=== PATIENT | female | born 1990 | race Caucasian/White ===

== ENCOUNTER 2020-02-05 10:53 | Emergency (ER) | payer OTHER ==
[2020-02-05 11:53] LABS: BILIRUBIN,URINE NEGATIVE (NEGATIVE); GLUCOSE, URINE (UA) NEGATIVE (NEGATIVE); KETONES,URINE (UA) NEGATIVE (NEGATIVE); LEUKOCYTE ESTERASE, URINE MODERATE (NEGATIVE); NITRITE,URINE POSITIVE (NEGATIVE); OCCULT BLOOD,URINE MODERATE (NEGATIVE); PROTEIN,URINE NEGATIVE (NEGATIVE); UROBILINOGEN,URINE 0.2 (NORMAL) E.U./dL (NORMAL)
[2020-02-05 11:55] LABS: CLARITY,URINE HAZY (CLEAR); HCG UR QUAL POSITIVE
--- NOTE | 2020-02-05 12:12 | ED Physician Documentation ---
History of Present Illness - Stated complaint Stated Complaint: FEMALE - Chief complaint Chief Complaint: General - History obtained from History obtained from: Patient - Additonal information Additional information: 29yo woman frequent UTIs presents with 3 to 4 days of dysuria, frequency, hematuria, and right flank pain without fevers consistent with prior episodes of kidney infections. When I asked her if there was any chance she was she said no, I noted to her that her urine test was positive and she admitted to having a surgical on the of last month. She has improving cramping and bleeding since then. Review of Systems Constitutional: denies: Fever, Chills Respiratory: denies: Dyspnea, Cough GI: denies: Nausea, Vomiting, Diarrhea : reports: Dysuria, Frequency PD PAST MEDICAL HISTORY - Present Medications Home Medications: Ambulatory Orders Medication Instructions Recorded Confirmed Cefdinir 300 mg PO BID #20 capsule 02/05/20 - Allergies Allergies/Adverse Reactions: Allergies Allergy/AdvReac Type Severity Reaction Status Date / Time No Known Drug Allergies Allergy Verified 02/05/20 12:18 PD ED PE NORMAL - Vitals Vital signs reviewed: Yes - General General: Alert and oriented X 3, No acute distress - Abdomen Abdomen: Soft, Non tender - Back Back: Other (Mild R CVAT) - Neuro Neuro: Alert and oriented X 3, Normal speech Results - Vitals Vitals: Vital Signs - 24 hr 02/05/20 02/05/20 11:14 12:22 Temperature 36.6 C 36.5 C Heart Rate 64 64 Respiratory 18 16 Rate Blood Pressure 119/68 111/64 O2 Saturation 100 100 Oxygen O2 Source Room air - EKG (time done) 1120 Rate: Rate (enter#) (68) Rhythm: NSR Arcade: Normal Intervals: Normal NE QRS: Normal Ischemia: Normal ST segments - Labs Labs: Laboratory Tests 02/05/20 11:31 Urine Color YELLOW Urine Clarity HAZY Urine pH 6.0 Ur Specific [place] 1.010 Urine Protein NEGATIVE Urine Glucose (UA) NEGATIVE Urine Ketones NEGATIVE Urine Occult Blood MODERATE H Urine Nitrite POSITIVE H Urine Bilirubin NEGATIVE Urine Urobilinogen 0.2 (NORMAL) Ur Leukocyte Esterase MODERATE H Urine RBC 6-10 H Urine WBC 11-25 H Ur Squamous Epith Cells MOD Squamous H Urine Bacteria Moderate H Ur Microscopic Review INDICATED Urine Culture Comments NOT INDICATED Urine HCG, Qual POSITIVE PD MEDICAL DECISION MAKING - ED course ED course: 29-year-old woman who presents with pyelonephritis, normal vitals, no evidence of sepsis. We discussed the positive test. She had a surgical 11 days ago. I spoke with my OB on-call, Dr. Lee who said this is an expected finding and they expect the urine test to be positive anywhere from 2 to 6 weeks after a surgical . She recommended having the patient take a home test in 2 weeks and if positive at that time to follow-up in the clinic for further evaluation and treatment. Departure - Departure Disposition: Home, Self Care Clinical Impression: Pyelonephritis Condition: Good Record reviewed to determine appropriate education?: Yes Instructions: Pyelonephritis Dc Follow-Up: [facility] [Provider Group] Prescriptions: Cefdinir 300 mg PO BID #20 capsule Comments: Urine test today is persistently positive which can be explained by previous events, my OB sap consultant recommended having you take a home test in 2 weeks and if positive following up with them, the numbers on this form. Return if worse. We will culture your urine, the results should be done in 48-72 hours. If an antibiotic change is necessary we will call you. Return if worse in the meantime, especially if you develop increasing flank pain, fevers, or cannot keep down the medication. Discharge Date/Time: 02/05/20 12:29
[2020-02-05 12:15] LABS: BACTERIA,URINE Moderate /HPF (None Seen); SQUAMOUS EPITHELIAL CELL,UR MOD Squamous (<= Few)
[2020-02-05 12:24] VITALS: BP 111/64
== END 2020-02-05 12:29 | disposition home or self-care (01) ==
LOC: ED 10:53
DX: N12 Tubulo-interstitial nephritis, not specified as acute or chronic (principal)
CPT/HCPCS: 81001; 81025; 87086; 87181; 93005; 99283; A9270; 81003